=== PATIENT | male | born 1985 | race Caucasian/White ===

== ENCOUNTER 2018-10-22 04:59 | Emergency (ER) | payer OTHER ==
[~2018-10-22] VITALS: Ht 175.3 cm; Wt 70.3 kg
[~2018-10-22 04:59] MED LIST: BENZ100A PO; LORTAB 10 MG-3473 ML PO; Pseudoephedrine30 MG PO; Tylenol325 MG PO
== END 2018-10-22 06:29 | disposition home or self-care (01) ==
LOC: ER 04:59
DX: M77.9 Enthesopathy, unspecified (principal)
CPT/HCPCS: 73600; 99283-25

== ENCOUNTER 2019-03-07 13:20 | Emergency (ER) | payer OTHER ==
[~2019-03-07] VITALS: Ht 175.3 cm; Wt 68.0 kg
[2019-03-07] MEDS ORDERED: KETO10 PO (16:59)
[2019-03-07] MEDS ORDERED: ACETAMINOPHEN500 MG PO (16:59)
== END 2019-03-07 17:25 | disposition home or self-care (01) ==
LOC: ER 13:20
DX: S42.022A Displaced fracture of shaft of left clavicle, initial encounter for closed fracture (principal); S22.32XA Fracture of one rib, left side, initial encounter for closed fracture; V86.56XA Driver of dirt bike or motor/cross bike injured in nontraffic accident, initial encounter
CPT/HCPCS: 71046; 72125; 72128; 73000; 99284-25; A9270-GY

== ENCOUNTER 2023-03-30 15:19 | Emergency (ER) | payer OTHER ==
[~2023-03-30] VITALS: Ht 175.3 cm; Wt 72.6 kg
[~2023-03-30 15:19] MED LIST changes: +ACETAMINOPHEN500 MG PO; +KETO10 PO
[2023-03-30 16:02] VITALS: BP 135/82
== END 2023-03-30 18:52 | disposition home or self-care (01) ==
LOC: ER 15:19
DX: S82.64XA Nondisplaced fracture of lateral malleolus of right fibula, initial encounter for closed fracture (principal); V28.49XA Other motorcycle driver injured in noncollision transport accident in traffic accident, initial encounter
CPT/HCPCS: 29515; 73590; 73610; 99283-25

== ENCOUNTER 2024-02-07 11:48 | Day surgery (SDC) | payer OTHER ==
[~2024-02-07] VITALS: Ht 175.3 cm; Wt 72.8 kg
--- NOTE | 2024-02-07 07:29 | NUR ---
02/07/24 0728 Luisa George 0.15 ML OF EPI (1MG/ML) ADDED TO 0.5% ROPIVACAINE (150MG/30ML) TO MAKE ROPIVACAINE 0.5% WITH EPI 1:200,000.
[~2024-02-07 11:48] MED LIST changes: +EPINEPhrine HCl 1 MG/ML 1ML Amp XX ONE; +Lactated Ringer's 1,000 ML IV ONE; +Ropivacaine 0.5% HCl/Pf 5 MG/ML 20ML VIAL INJ ONE
[2024-02-07] MEDS ORDERED: Lactated Ringer's 1,000 ML IV ONE ×4 (11:54→14:56)
[2024-02-07] MEDS ORDERED: CeFAZolin Sodium 2,000 MG VIAL ONE (12:27)
[2024-02-07] MEDS ORDERED: Acetaminophen 500 MG Tab ONE (12:54)
--- NOTE | 2024-02-07 13:30 | NUR ---
02/07/24 1330 LEONARD JOSEPH PATIENT NOTIFIED OR IS RUNNING BEHIND SCHEDULE. CALL LIGHT IN REACH.
[2024-02-07] MEDS ORDERED: propofoL 20 ML IV ONE (13:51)
[2024-02-07] MEDS ORDERED: HYDROmorphone HCl/Pf 1MG SYR ONE (13:52)
[2024-02-07] MEDS ORDERED: Ondansetron HCl 2 MG / ML 2ML Vial ONE ×2 (14:06→15:37)
[2024-02-07] MEDS ORDERED: Metoclopramide HCl 5MG / ML 2ML Vial ONE (14:06)
[2024-02-07] MEDS ORDERED: EPINEPhrine HCl 1 MG/ML 1ML Amp XX ONE ×2 (14:18→14:19)
[2024-02-07] MEDS ORDERED: Bupivacaine 0.5% HCl 5 MG/ML 30MLVIAL INJ ONE (14:18)
--- NOTE | 2024-02-07 15:44 | NUR ---
02/07/24 1544 Olman Amato ZOFRAN 4MG IV GIVEN AT 1543 FOR COMPLAINT OF NAUSEA
[2024-02-07 15:57] VITALS: BP 122/73
--- NOTE | 2024-02-07 16:14 | NUR ---
02/07/24 1614 Olman Amato PRESENT FOR DISCHARGE INSTRUCTIONS. PT CONTINUES TO DENY PAIN AND STATES READY FOR DISCHARGE.
== END 2024-02-07 16:26 | disposition home or self-care (01) ==
LOC: ORSCSDS 11:48
DX: M19.071 Primary osteoarthritis, right ankle and foot (principal); M65.971 Unspecified synovitis and tenosynovitis, right ankle and foot; M24.071 Loose body in right ankle; F17.210 Nicotine dependence, cigarettes, uncomplicated
CPT/HCPCS: A9270; J0171; J0690; J1171; J2405; J2704; J2765; J2795; J7120